=== PATIENT | male | born 1945 | race Caucasian/White ===

== ENCOUNTER 2016-05-08 11:11 | Emergency (ER) | payer MEDICARE, BC ==
[2016-05-08 11:52] LABS: BASOPHILS 0.3 % (0.0-2.0); EOSINOPHILS 1.7 % (0-7); HEMATOCRIT 45.4 % (42.0-54.0); HEMOGLOBIN 15.1 g/dL (13.5-17.5); IMMATURE GRANULOCYTES 0.3 % (0-5); LYMPHOCYTES 19.1 % (15-50); MCH 31.2 pg (26.0-34.0); MCHC 33.3 g/dL (31.0-37.0); MCV 93.8 fL (80.0-100.0); MEAN PLATELET VOLUME 9.6 fL (7.4-10.4); MONOCYTES 10.6 % (2-11); PLATELET COUNT 185 10x3/uL (130-400); RBC 4.84 10x6/uL (4.20-6.10); RDW 14.4 % (11.5-14.5); WBC 7.7 10x3/uL (4.8-10.8)
[2016-05-08 12:11] LABS: ALBUMIN 3.4 g/dL (3.4-5.0); ALKALINE PHOSPHATASE 83 U/L (46-116); ALT (SGPT) 28 U/L (10-68); BILIRUBIN - TOTAL 0.42 mg/dL (0.2-1.3); CALC OSMOLALITY 288 mosm/kg (275-300); CALCIUM 8.3 mg/dL (8.5-10.1); CARBON DIOXIDE 29.3 mmol/L (21.0-32.0); CHLORIDE - SERUM 106 mmol/L (98-107); CREATININE - SERUM 1.3 mg/dL (0.6-1.3); GLUCOSE 141 mg/dL (74-106); POTASSIUM - SERUM 3.7 mmol/L (3.5-5.1); PROTEIN - SERUM 6.8 g/dL (6.4-8.2); SODIUM 143 mmol/L (136-145); UREA NITROGEN 17 mg/dL (7-18); eGFR NON AFRICAN AMERICAN 58 mL/min (90-120)
[2016-05-08 12:21] LABS: CHOL - HDL RATIO 4.1 ratio (2.3-4.9); CHOLESTEROL, TOTAL 153 mg/dL (0-200); CKMB 0.3 U/L (0.0-3.6); CREATINE KINASE 65 UL (21-232); HDL CHOLESTEROL 37 mg/dL (32-96); LDL CHOLESTEROL 73 mg/dL (0-100); TRIGLYCERIDE 216 mg/dL (30-200); TROPONIN-I < 0.017 ng/mL (0.000-0.060)
== END 2016-05-08 13:22 | disposition home or self-care (01) ==
LOC: D.ER 11:11
PROVIDERS: Emergency Medicine
DX: R07.89 Other chest pain (principal); F41.9 Anxiety disorder, unspecified; E78.5 Hyperlipidemia, unspecified; F17.200 Nicotine dependence, unspecified, uncomplicated; I49.3 Ventricular premature depolarization; I45.10 Unspecified right bundle-branch block; I44.60 Unspecified fascicular block

== ENCOUNTER 2016-08-14 20:54 | Observation (INO) | payer MEDICARE, BC ==
[~2016-08-14] VITALS: Ht 182.9 cm; Wt 98.4 kg
--- NOTE | ~2016-08-14 | HEMODYNAMI ---
PATIENT:Nkechi WILCOX MEDICAL RECORD: [id number] : [birth year] LOCATION:[facility] D.7 ADMISSION DATE: 08/14/16 Generatedon:08/15/201612:27 Patient name: Nkechi WILCOX Patient #: [id number] SSN: [id number] : 1945 Date of study: 08/15/2016 Page: Of Hemodynamic Procedure Report Patient Data Patient Demographics Procedure consent was obtained First Name: Nkechi Gender: Male Last Name: BRENDEN : 1945 Middle Initial: W Age: 71 year(s) Patient #: [id number] Race: SSN: [id number] Additional ID: [id number] Contact details Address: [address] [place] [address] State: [place] City: [place] Zip code: [address] Admission Admission Data Admission Date: 08/14/2016 Admission Time: 22:13 Arrival Date: 08/14/2016 Arrival Time: 22:13 Admit Source: Other Insurance Payor: Medicare Room #: D.2117 Height (in.): 72 BSA: 2.24 (m2) Height (cm.): 182.88 BMI: 30.52 (kg/m2) Weight (lbs.): 225 Weight (kg.): 102.06 Lab Results Lab Result Date: 08/15/2016 Lab Result Time: 0:00 Biochemistry Name Units Result Min Max BUN mg/dl 21 --(----)-* 7 18 Creatinine mg/dl 1.5 --(----)-* 0.6 1.3 CBC Name Units Result Min Max Hemoglobin g/dl 13.9 --(*---)-- 13.5 17.5 Procedure Procedure Types Cath Procedure Diagnostic Procedure [facility] w/Coronaries Miscellaneous Procedures Moderate Sedation up to 30 minutes Procedure Description Procedure Date Procedure Date: 08/15/2016 Procedure Start Time: 12:08 Procedure End Time: 12:19 Procedure Staff Name Function Quoc Wang MD Performing Physician Zack Meraz RT Scrub Jerry Barajas RN Nurse Jessica cMneal RT Monitor Indication Angina Procedure Data Cath Procedure Fluoroscopy Diagnostic fluoroscopy Total fluoroscopy Time: 2.3 time: 2.3 min min Diagnostic fluoroscopy Total fluoroscopy dose: 464 dose: 464 mGy mGy Contrast Material Contrast Material Type Amount (ml) Isovue 370 81 Entry Location Entry Primary Successful Side Size Upsize Upsize Entry Closure Succes sful Closure Location (Fr) 1 (Fr) 2 (Fr) Remarks Device Remarks Femoral Right 5 Fr Exoseal artery Estimated blood loss: 5 ml Diagnostic catheters Device Type Used For End Catheter Placement Cordis 5Fr JL 4.0 Left Coronary Catheter (MP) Angiography Cordis 5Fr 3DRC Catheter Right Coronary (MP) Angiography Cordis 5Fr Pigtail LV Angiography Catheter (MP) Procedure Complications No complications Procedure Medications Medication Administration Route Dosage Oxygen NC 3 l/min Lidocaine 2% added to field 20 Heparin Flush Bag added to field 2 bags (1000units/500ml NS) 0.9% NaCl I.V. 100 ml/hr Versed I.V. 1 mg Fentanyl I.V. 50 mcg Versed I.V. 1 mg Fentanyl I.V. 50 mcg Hemodynamics Rest BSA: 2.24 (m2) HGB: 13.9 (g/dl) O2 Consumption: Estimated: 250.53 (ml/min) O2 Co nsumption indexed: Estimated:111.84 (ml/min/m) Heart Rate: 60 (bpm) Pressure Samples Time Site Value (mmHg) Purpose Heart Use Rate(bpm) 12:15 LV 125/11,20 Snapshot 100 Gradients Valve Time Site Site Mean SEP/DFP Peak To Heart Use 1 2 (mmHg) (sec/min) Peak Rate (mmHg) (bpm) Aortic 12:16 LV AO 89 Snapshots Pre Cath Intra NCS Post Cath Vital Signs Time Heart Resp SPO2 etCO2 [id number] NIBP (mmHg) Rhythm Pain Sedation Rate (ipm) (%) (mmHg) (mmHg) Status Level (bpm) 11:53:44 56 20 97 0 0 142/65(117) NSR 0 (11) 10(A) , No pain 11:58:06 53 17 97 0 0 133/60(113) NSR 0 (11) 10(A) , No pain 12:02:26 64 16 96 0 0 124/62(94) NSR 0 (11) 10(A) , No pain 12:06:46 60 15 96 0 0 128/62(108) NSR 0 (11) 10(A) , No pain 12:11:06 58 15 97 0 0 122/63(100) NSR 0 (11) 9(A) , No pain 12:15:24 97 16 94 0 0 131/62(101) NSR 0 (11) 9(A) , No pain 12:19:42 55 17 94 0 0 119/64(110) NSR 0 (11) 10(A) , No pain Medications Time Medication Route Dose Verified Delivered Reason Notes Effe ctiveness by by 11:52:46 Oxygen NC 3 Quoc Buffie used for l/min St. Sudhakar Barajas RN procedure 11:52:54 Lidocaine 2% added 20ml Quoc Quoc for local to vial [facility] anesthetic field MD ENNIS 11:53:00 Heparin Flush added 2 Quoc Quoc used for Bag to bags [facility] procedure (1000units/500ml field MD ENNIS NS) 11:53:10 0.9% NaCl I.V. 100 Quoc Del Rosarioie Per ml/hr St. Sudhakar Barajas RN physician 12:03:15 Versed I.V. 1 mg Quoc Edwards for St. Sudhakar Barajas RN sedation 12:03:20 Fentanyl I.V. 50 Quoc Del Rosarioie for mcg [address] Sudhakar Barajas RN sedation 12:11:53 Versed I.V. 1 mg Quoc Edwards for St. Sudhakar Barajas RN sedation 12:11:57 Fentanyl I.V. 50 Quoc Edwards for mcg St[address] Sudhakar Barajas RN sedation Procedure Log Time Note 11:21:49 Informed consent obtained and on chart 11:21:55 Diagnostic Cath Status : Elective 11:23:08 Indication : Angina 11:24:08 Admit Source: Other 11:24:17 Arrival Date: 08/14/2016 10:13:00 PM 11:24:26 Insurance Payor : Medicare 11:25:04 Lab Result : Hemoglobin 13.9 g/dl 11:25:04 Lab Result : Creatinine 1.5 mg/dl 11:25:04 Lab Result : BUN 21 mg/dl 11:26:21 Jerry Barajas RN sent for patient. Start room use. 11:32:52 Time tracking: Regular hours 11:32:57 Plan of Care:Hemodynamics will remain stable., Cardiac rhythm will remain stable., Comfort level will be maintained., Respiratory function will remain adequate., Patient/ family verbilizes understanding of procedure., Procedure tolerated without complication., Recovers from procedure without complications.. 11:43:18 Patient received from Med II to CCL 1 Alert and oriented. Tansferred to table in Supine position. 11:43:21 Warm blankets applied, and zenobia hugger turned on for patient comfort. 11:43:22 Correct patient and procedure confirmed by team. 11:43:23 ECG and BP/O2 sat monitors applied to patient. 11:52:26 Vital chart was started 11:52:27 Baseline sample Acquired. 11:52:33 Rhythm: sinus rhythm 11:52:34 Full Disclosure recording started 11:52:46 Oxygen 3 l/min NC was administered by Jerry Barajas RN; used for procedure; 11:52:54 Lidocaine 2% 20ml vial added to field was administered by Quoc Wang MD; for local anesthetic; 11:53:00 Heparin Flush Bag (1000units/500ml NS) 2 bags added to field was administered by Quoc Wang MD; used for procedure; 11:53:10 0.9% NaCl 100 ml/hr I.V. was administered by Jerry Barajas RN; Per physician; 11:58:27 H&P Date Dictated: 08/15/2016 New H&P dictated by physician.. 11:58:29 Pre-procedure instructions explained to patient. 11:58:29 Pre-op teaching completed and patient verbalized understanding. 11:58:32 Family in patients room. 11:58:40 Patient NPO since Midnight. 11:58:48 Is the patient allergic to Iodine/contrast media? No. 11:58:50 Was the patient premedicated? No 11:58:51 Is patient on blood thinner?No 11:58:52 Patient diabetic? No. 11:58:55 Previous problem with sedation/anesthesia? No ? 11:59:00 Snore? Yes 11:59:02 Sleep apnea? Yes 11:59:05 Deviated septum? No 11:59:07 Opens mouth fully? Yes 11:59:09 Sticks out tongue? Yes 11:59:13 Airway obstruction? Yes copd 11:59:16 Dentures? No ? 11:59:19 Pre procedure: right dorsailis pedis pulse 1+ Palpable, but thready & weak; easily obliterated 11:59:25 Patient pain scale 0/10 ?. 11:59:31 IV patent on arrival in left forearm with 0.9% NaCl at [facility]. 11:59:34 Lab results completed and on chart. 11:59:40 Right groin area was prepped with chlora-prep and draped in sterile fashion 11:59:41 Sharps counted by scrub and verified by R.N. 11:59:42 Alarms reviewed by R. N. 11:59:43 Physician arrived 11:59:44 --------ALL STOP TIME OUT------ 11:59:46 Final Timeout: patient, procedure, and site verified with staff and physician. All members of the team are in agreement. 11:59:49 Right groin site verified by team. 11:59:52 Physical assessment completed. ASA score P 3 - A patient with severe systemic disease as per Quoc Wang MD. 11:59:56 Sedation plan: IV Moderate Sedation Versed, Fentanyl 12:03:15 Versed 1 mg I.V. was administered by Jerry Barajas RN; for sedation; 12:03:20 Fentanyl 50 mcg I.V. was administered by Jerry Barajas RN; for sedation; 12:04:40 Use device set Femoral Dx 12:04:41 Acist Syringe opened to sterile field. 12:04:42 Bag Decanter opened to sterile field. 12:04:42 Medline Cath Pack opened to sterile field. 12:04:43 Terumo 5Fr Omar Sheath opened to sterile field. 12:04:43 St Fer 260cm J .035 wire opened to sterile field. 12:04:44 Acist Hand Control opened to sterile field. 12:04:45 Acist Manifold opened to sterile field. 12:04:45 Diagnostic Infinity 5Fr Multipack catheter opened to sterile field. 12:04:46 Tegaderm 4 x 4 opened to sterile field. 12:08:55 Procedure started. 12:08:59 Local anesthetic to right femoral artery with Lidocaine 2% by Quoc Wang MD.INITIAL ACCESS ONLY 12:09:54 A 5 Fr sheath was inserted into the Right Femoral artery 12:10:04 A Cordis 5Fr JL 4.0 Catheter (MP) was advanced over the wire and used for Left Coronary Angiography. 12:10:09 LCA angiography performed. 12:10:12 Injector settings: Ml/sec: 3, Volume: 6, 12:11:30 Catheter removed. 12:11:36 A Cordis 5Fr 3DRC Catheter (MP) was advanced over the wire and used for Right Coronary Angiography. 12:11:53 Versed 1 mg I.V. was administered by Jerry Barajas RN; for sedation; 12:11:57 Fentanyl 50 mcg I.V. was administered by Jerry Barajas RN; for sedation; 12:13:26 RCA angiography performed. 12:13:50 Catheter removed. 12:13:59 A Cordis 5Fr Pigtail Catheter (MP) was advanced over the wire and used for LV Angiography. 12:14:14 Zero performed for pressure channel P1 12:15:59 LV hemodynamics recorded. 12:16:01 LV gram done using ULRICH 12:16:03 Injector settings: Ml/sec: 5, Volume: 15, 12:16:13 EF : 60 % 12:16:23 Catheter removed. 12:16:32 Cordis 5Fr Exoseal opened to sterile field. 12:17:00 Sheath removed intact; hemostasis achieved with Exoseal to the Right Femoral artery. 12:17:02 Procedure ended.(Physican Out) 12:17:19 Fluoroscopy time 02.30 minutes. 12:17:23 Fluoroscopy dose: 464 mGy 12:17:23 Flurop Dose total: 464 12:17:28 Contrast amount:Isovue 370 81ml. 12:17:46 Sharps counted by scrub and verified by R.N. 12:17:48 Insertion/operative site no bleeding no hematoma. 12:17:51 Post-op/insertion site Right Femoral artery dressed using a 4 x 4 and Tegaderm. 12:17:54 Post right femoral artery:stable 12:17:55 Post Procedure Pulses reassessed and unchanged 12:17:58 Post procedure rhythm: unchanged. 12:18:01 Estimated blood loss: 5 ml 12:18:03 Post procedure instruction explained to patient.Patient verbalizes understanding. 12:18:03 Patient needs reinforcement of post procedure teaching. 12:18:43 Procedure type changed to Cath procedure, Diagnostic procedure, [facility], [facility] w/Coronaries, Miscellaneous Procedures, Moderate Sedation up to 30 minutes 12:18:45 Procedure and supply charges have been captured, reviewed, submitted and are correct. 12:18:50 Procedure Complication : No complications 12:18:52 Vital chart was stopped 12:18:53 See physician's report for complete and final results. 12:18:58 Report given to [facility]. 12:19:01 Patient transfered to [facility] with Stretcher. 12:19:02 Procedure ended. 12:19:02 Full Disclosure recording stopped 12:19:06 End room use (Document Last) 12:22:39 Patient Weight : 225 kg 12:22:48 Patient Height : 72 cm Device Usage Item Name Manufacture Quantity Catalog Hospital Part Current Minimal Lo t# / Number Charge Number Stock Stock Serial# Code Acist Acist 1 98148 382757 170762 087539 20 Syringe Medical [employer] Inc Bag Microtek 1 2002S 209359 76857 281206 5 Dec[employer] Medline Cardinal 1 [id number] 617107 90236 718869 5 Cath Pack Health Terumo 5Fr Terumo 1 EUD022 872836 212251 418879 [address] Fer St Fer 1 562966 845667 418013 197673 30 260cm J .035 wire Acist Hand Acist 1 08558 117812 428848 657082 5 Control Medical Systems Inc Acist Acist 1 41316 426701 799377 953297 5 Manifold Medical Systems Inc Diagnostic Cardinal 1 [id number] 510762 47602 257283 30 Infinity Health 5Fr Multipack catheter Tegaderm 4 3M 1 1626W 925670 328045 184104 5 x 4 Cordis 5Fr Cardinal 1 171085 5 JL 4.0 Health Catheter (MP) Cordis 5Fr Cardinal 1 268833 5 3DRC Health Catheter (MP) Cordis 5Fr Cardinal 1 979404 5 Pigtail Health Catheter (MP) Cordis 5Fr Cardinal 1 EX500 771050 491286 300332 10 Admiral Records Management Signature Audit [place] Stage Time Signature Unsigned Intra-Procedure 08/15/2016 Jessica Mcneal 12:27:04 PM RT(R) Signatures Monitor : Jessica Mcneal RT Signature : Date : Time : [address] [place] [address]
--- NOTE | ~2016-08-14 | DS ---
PATIENT:Nkechi WILCOX :[birth year] MEDICAL RECORD: [id number] DISCHARGE SUMMARY ADMISSION DATE: 08/14/16 DISCHARGE DATE: 08/15/16 DATE OF ADMISSION: 08/14/2016 DATE OF DISCHARGE: 08/15/2016 ADMITTING DIAGNOSES: Chest pain, AFib with rapid ventricular response. 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 Details are well-outlined in the history of the present illness, H&P. All events, lab procedures and diagnostic testing are well documented in the records. The patient was admitted, appropriate home medicines continued. Dr. Montalvo consulted for cardiology management. His recommendations were followed. The patient had elevated troponin. He did convert to sinus rhythm. It was thought he needed to go to the clay processing labourer; however, he was taken to the clay processing labourer, had a clean cath per Dr. Wang's report. He has remained in a sinus rhythm, he stabilized post-cath and stable for dismissal home. DIAGNOSES: Same as above. Also includes chest pain, elevated troponin, AFib with rapid ventricular response, now converted to sinus rhythm, elevated troponin, likely secondary to demand ischemia from AFib, coronary artery disease status post cardiac catheterization with patent coronaries, history of pulmonary embolus, he is on chronic Coumadin, history of hypertension, ongoing tobacco use, nicotine dependence with withdrawal. Greater than 30 minutes was spent on this discharge. TRANSINT:[id number] Voice Confirmation ID: [id number] DOCUMENT ID: [id number] Dictated By: CISCO VANEGAS RN I have interviewed/examined the above patient and agree with these documented findings. MIRYAM RODGERS MD CC: [id number] DICTATION DATE: 08/15/16 1452 CERAMICS TEST ENGINEER: 08/16/16 1007 DIS IN 08/15/16 [facility] [address] [place] [address]
[~2016-08-14 20:54] MED LIST: OMEPRAZOLE20 M1 PO
[2016-08-14 21:14] LABS: BASOPHILS 0.4 % (0-2); EOSINOPHILS 1.6 % (0-7); HEMATOCRIT 45.2 % (42.0-54.0); HEMOGLOBIN 15.3 g/dL (13.5-17.5); IMMATURE GRANULOCYTES 0.1 % (0-5); LYMPHOCYTES 23.7 % (15-50); MCH 31.5 pg (26.0-34.0); MCHC 33.8 g/dL (31.0-37.0); MEAN PLATELET VOLUME 9.5 fL (7.4-10.4); MONOCYTES 8.7 % (2-11); NEUTROPHILS 65.5 % (40-80); PLATELET COUNT 194 10x3/uL (130-400); RBC 4.86 10x6/uL (4.20-6.10); RDW 14.7 % (11.5-14.5)
[2016-08-14 21:22] LABS: INR 2.18 (0.85-1.17); PROTIME 24.3 SECONDS (11.6-15.0)
[2016-08-14 21:29] LABS: ALBUMIN 3.2 g/dL (3.4-5.0); ALKALINE PHOSPHATASE 89 U/L (46-116); ALT (SGPT) 30 U/L (10-68); CALCIUM 8.1 mg/dL (8.5-10.1); CARBON DIOXIDE 24.2 mmol/L (21.0-32.0); CHLORIDE - SERUM 104 mmol/L (98-107); CREATININE - SERUM 1.5 mg/dL (0.6-1.3); PROTEIN - SERUM 6.7 g/dL (6.4-8.2); SODIUM 140 mmol/L (136-145); UREA NITROGEN 21 mg/dL (7-18); eGFR NON AFRICAN AMERICAN 49 mL/min (90-120)
[2016-08-14 21:41] LABS: CHOL - HDL RATIO 3.9 ratio (2.3-4.9); CHOLESTEROL, TOTAL 143 mg/dL (0-200); CKMB 2.8 U/L (0.0-3.6); CREATINE KINASE 123 UL (21-232); HDL CHOLESTEROL 37 mg/dL (32-96); LDL CHOLESTEROL 62 mg/dL (0-100); LDL-HDL RATIO 1.7 ratio (1.5-3.5); MAGNESIUM - SERUM 1.8 mg/dL (1.8-2.4); TRIGLYCERIDE 221 mg/dL (30-200)
[2016-08-14 21:42] LABS: CALC OSMOLALITY 288 mosm/kg (275-300); GLUCOSE 225 mg/dL (74-106); TROPONIN-I < 0.017 ng/mL (0.000-0.060)
--- NOTE | 2016-08-14 23:27 | NUR ---
ARRIVED TO FLOOR VIA STRETCHER, ORIENTED TO UNIT. PLACED ON TELEMETRY. RIGHT FOREARM INFUSING CARDIZEM @ 15. CALL LIGHT IN REACH. SEE NURSE ASSESSMENT.
[2016-08-14] MEDS ORDERED: NORVASC10 MG PO (23:59)
[2016-08-15] VITALS: BP 96/47
[2016-08-15] MEDS ORDERED: HYTRIN10 MG PO (00:01)
[2016-08-15] MEDS ORDERED: PRAVACHOL80 MG PO (00:01)
[2016-08-15] MEDS ORDERED: PROSCAR5 MG PO (00:01)
[2016-08-15] MEDS ORDERED: COUMADIN5 MG PO (00:02)
[2016-08-15 01:12] VITALS: BP 96/47; Ht 182.9 cm; Wt 98.4 kg
[2016-08-15 04:00] VITALS: BP 115/47
[2016-08-15 04:49] LABS: INR 1.6 (0.85-1.17)
[2016-08-15 05:28] LABS: CARBON DIOXIDE 29.4 mmol/L (21.0-32.0); CHLORIDE - SERUM 107 mmol/L (98-107); CKMB 1.7 U/L (0.0-3.6); CREATINE KINASE 94 UL (21-232); SODIUM 142 mmol/L (136-145)
[2016-08-15 05:32] LABS: CALC OSMOLALITY 290 mosm/kg (275-300); CREATININE - SERUM 1.9 mg/dL (0.6-1.3); GLUCOSE 130 mg/dL (74-106); POTASSIUM - SERUM 3.6 mmol/L (3.5-5.1); UREA NITROGEN 29 mg/dL (7-18); eGFR NON AFRICAN AMERICAN 37 mL/min (90-120)
[2016-08-15 05:33] LABS: TROPONIN-I 0.072 ng/mL (0.000-0.060)
[2016-08-15 07:48] VITALS: BP 102/46
[2016-08-15 07:49] LABS: BASOPHILS 0.4 % (0-2); EOSINOPHILS 2.1 % (0-7); HEMATOCRIT 42.4 % (42.0-54.0); HEMOGLOBIN 13.9 g/dL (13.5-17.5); IMMATURE GRANULOCYTES 0.1 % (0-5); LYMPHOCYTES 21.5 % (15-50); MCH 31.2 pg (26.0-34.0); MCHC 32.8 g/dL (31.0-37.0); MEAN PLATELET VOLUME 10.1 fL (7.4-10.4); MONOCYTES 11.4 % (2-11); NEUTROPHILS 64.5 % (40-80); PLATELET COUNT 188 10x3/uL (130-400); RBC 4.46 10x6/uL (4.20-6.10); WBC 8.5 10x3/uL (4.8-10.8)
[2016-08-15 07:51] LABS: MCV 95.1 fL (80.0-100.0)
--- NOTE | 2016-08-15 08:17 | NUR ---
ASSESSMENT COMPLETED. TELEMERTY SHOWS SB AT 54. O2 AT 3 LM PER NC. SL TO RIGHT FA AND RIGHT AC, BOTH PATENT. DENIES ANY PAIN. SR UP WITH CALL LIGHT IN REACH
[2016-08-15 10:34] LABS: INR 1.34 (0.85-1.17); PROTIME 16.5 SECONDS (11.6-15.0)
[2016-08-15 10:58] LABS: CKMB 1.3 U/L (0.0-3.6); CREATINE KINASE 77 UL (21-232)
[2016-08-15 11:00] LABS: TROPONIN-I 0.076 ng/mL (0.000-0.060)
[2016-08-15 11:48] VITALS: BP 130/59
--- NOTE | 2016-08-15 12:51 | NUR ---
BACK FROM CONTACT LENS BLOCKER AND CUTTER. RIGHT GROIN SOFT WITH DRSG DRY AND INTACT. PPP. TELEMERTY SHOWS SR. V/S STABLE. WILL MONITOR
--- NOTE | 2016-08-15 13:39 | NUR ---
RIGHT GROIN SOFT WITH DRSG DRY AND INTACT. PPP. FAMILY AT BEDSIDE. WILL MONITOR
--- NOTE | 2016-08-15 15:36 | NUR ---
PT DISCHARGED. IVS REMOVED WITH TIP INTACT. INSTRUCTIONS GIVEN TO AND PT. TO PRIVATE CAR PER WHEELCHAIR
--- NOTE | 2016-08-16 10:00 | OP ---
PATIENT NAME: Nkechi WILCOX MEDICAL RECORD: [id number] :[birth year] LOCATION:D.M2 D.7 ADMISSION DATE:08/14/16 SURGEON: CONCEPCIÓN GARCIA MD DATE OF OPERATION: 08/15/2016 PROCEDURES: Left heart catheterization, selective coronary angiography, right femoral artery approach. CATHETERS: A 5-Paraguayan sheath, 5/4 left and right Niurka, 5/4 pig. The procedure was well tolerated and the patient returned to cortes, sheath removed. ExoSeal device was placed. FINDINGS: Left ventriculography in the 30-degree ULRICH view: Normal wall motion, normal systolic function, estimated EF 60%. CORONARY ANATOMY: Left main: Left main is free of disease. LAD: Has minimal luminal irregularity, but no flow obstructive stenosis. CIRCUMFLEX: Circumflex has minimal luminal irregularity, no flow obstructive stenosis. This is a left dominant system. RIGHT CORONARY ARTERY: Rudimentary without significant disease. IMPRESSION: Chest pain, dyspnea from atrial fibrillation. No role for intervention. TRANSINT:[id number] Voice Confirmation ID: [id number] DOCUMENT ID: [id number] CONCEPCIÓN GARCIA MD at 1000 CC: [id number] DICTATION DATE: 08/15/16 1241 ASSOCIATE PROFESSOR: 08/15/16 2135 DIS IN 08/15/16 [place] [address] [place] [address]
== END 2016-08-15 15:48 | disposition home or self-care (01) ==
LOC: D.ER 20:54 → D.M2 22:13 → OBSVTIME 22:13 → D.M2 22:13
PROVIDERS: Emergency Medicine; Internal Medicine Cardiovascular Disease; ADMIT Family Medicine
DX: I48.0 Paroxysmal atrial fibrillation (principal); Z79.01 Long term (current) use of anticoagulants; Z86.711 Personal history of pulmonary embolism; I24.8 Other forms of acute ischemic heart disease; I25.10 Atherosclerotic heart disease of native coronary artery without angina pectoris; I10 Essential (primary) hypertension; F17.203 Nicotine dependence unspecified, with withdrawal; J44.9 Chronic obstructive pulmonary disease, unspecified; K21.9 Gastro-esophageal reflux disease without esophagitis; E87.6 Hypokalemia

== ENCOUNTER 2018-01-12 22:46 | Inpatient (IN) | payer MEDICARE, BC ==
[~2018-01-12] VITALS: Ht 182.9 cm; Wt 102.1 kg
--- NOTE | ~2018-01-12 | MORECARE ---
CASE MANAGEMENT DISCHARGE SUMMARY PATIENT: Nkechi WILCOX UNIT: [id number] ADM DATE: 01/13/18 AGE: 72 : [birth year] SEX: M ROOM/BED: D.3579 AUTHOR: LANDY,DOC PHYSICIAN: REFERRING PHYSICIAN: REG CONNER MD DATE OF SERVICE: 01/15/18 Discharge Plan Patient Name: Nkechi WILCOX Facility: [facility]:[place] : 1945 Planned Disposition: Home Anticipated Discharge Date: 01/16/18 Discharge Date: Expected LOS: 3 Initial Reviewer: [email or web address] Initial Review Date: 01/15/2018 Generated: 01/15/18 2:24 pm Comments DCP- Discharge Planning Updated by [id number]: Herman Espinosa on 01/15/18 12:[address] Patient Name: Nkechi WILCOX Admission Status: ER Accout number: [id number] Admission Date: 01-13-2018 : 1945 Admission Diagnosis:SHORTNESS OF BREATH Attending: REG CONNER Current LOS: 2 Anticipated DC Date: 01-16-2018 Planned Disposition: Home Primary Insurance: MEDICARE A & B Discharge Planning Comments: CM RECEIVED ORDER FOR OXYGEN, NEBULIZER AND NEBULIZED MEDICATIONS, MET WITH PT IN ROOM TO DISCUSS DISCHARGE PLANNING AND NEEDS. PT REPORTS LIVING AT HOME INDEPENDENTLY WITH SPOUSE. PT HAS CPAP FROM [facility] AND NO OUTSIDE SERVICES ASSISTING IN THE HOME. CM DISCUSSED AVAILABILITY OF HOME HEALTH, REHAB SERVICES AND MEDICAL EQUIPMENT. PT DENIES DISCHARGE NEEDS OTHER THAN OXYGEN AND NEBULIZER; PT, REPORTS HIS WILL PICK HIM UP FOR DISCHARGE HOME. IMPORTANT MESSAGE FROM MEDICARE PROVIDED AND EXPLAINED. [facility] AND UNDERSTANDS IT MAY NOT BE READY FOR HIM TO GO HOME THIS WEEKEND PLANNED. CM DISCUSSED OPTION OF USING MEDICARE INSURANCE FOR MEDICAL EQUIPMENT WITH COMMUNITY PROVIDER WHICH WILL ALLOW PT TO GO HOME WITH NEEDED MEDICAL EQUIPMENT AND ALLOW THE [facility] TIME TO ARRANGE MEDICAL EQUIPMENT AT HOME. PT IN AGREEMENT WITH PLAN AND REPORTS HAVING FUNDS TO PAY FOR MEDICATION AT PHARMACY UNTIL HE CAN GET TO [facility] NEXT THURSDAY TO GET PRESCRIPTIONS FILLED BY [facility] PH[facility]. PT HAS NOT CHOICE ON PROVIDER FOR MEDICAL EQUIPMENT. CM CALLED [facility], DISCUSSED WITH YULISSA AT [phone] WHO REPORTS THEY CAN PROVIDE OXYGEN AND NEBULIZER THROUGH MEDICARE AND [employer] WITH NO COPAY TO PT UNTIL THE PA PROVIDES THE EQUIPMENT OR PT MAY DECIDE TO KEEP EQUIPMENT WITH [facility] AND MEDICARE PAYING. PT INFORMED AND IN AGREEMENT WITH PLAN. CM CALLED BRIAN BENITEZ [facility] CARTOGRAPHIC DRAFTER, [place]T [phone] WHO ADVISED CM TO FAX REQUEST AND DOCUMENTATION TO [facility] AND ADVISED THAT IT MAY TAKE SEVERAL DAYS TO ARRANGE MEDICAL EQUIPMENT THROUGH [facility]. CM CALLED [facility], , SPOKE TO AMAN WHO ASKED FOR CM TO FAX REFERRAL AND SHE COULD NOT TELL CM HOW LONG IT WILL TAKE TO ARRANGE MEDICAL EQUIPMENT. CM FAXED REFERRAL [facility], , ATTENTION PAC [address] DOMINGUEZ. CM FAXED REFERRAL TO [facility] FOR OXYGEN AND NEBULIZER, . CM CALLED [facility], , SPOKE TO LATONIA WHO PROVIDED [employer] [employer] OF DUONEB INHALATION SOLUTION AND [employer] INHALER: DUONEB $13.39 AND [employer]BICORT $326.40. PT NOTIFIED AND WILL CALL [employer] TO SEE IF HE CAN GET DISCOUNT CARD FOR FREE INHALER. CM FAXED PRESCRIPTIONS TO [facility] AT [phone]. [facility] TO ARRANGE HOSPITAL DELIVERY OF PORTABLE OXYGEN TO HOSPITAL FOR DISCHARGE THURSDAY, WILL ARRANGE HOME OXYGEN AND NEBULIZER FOR HOME DELIVERY. [facility] ALSO WORKING ON ARRANGING OXYGEN AND NEBUILZER FOR HOME DELIVERY; PT WILL CALL [facility] TO HAVE EQUIPMENT PICKED UP ONCE [facility] DELIVERS. PT WILL TAKE PRESCRIPTIONS TO [facility] CL[facility]IC ON THURSDAY TO CHANGE TO [facility] PRESCRIPTIONS FOR FILLING AT [facility] PHARM[facility]Y. Belt Cleaner: Herman Espinosa DCPIA - Discharge Planning Initial Assessment Updated by [id number]: Herman Espinosa on 01/15/18 12:46 pm * Is the patient Alert and Oriented? Yes * How many steps to enter\exit or inside your home? * PCP DR. DOMINGUEZ, [facility] * Pharmacy [facility] MAIL ORDER OR Automated Trading Desk * Preadmission Environment Home with Family * ADLs Independent * Equipment CPAP * Other Equipment PROVIDER - [facility] * List name and contact numbers for known caregivers / representatives who currently or will assist patient after discharge: BILL PALMA, SIGNIFICANT OTHER, * Verbal permission to speak to the caregivers and representatives has been obtained from the patient. N/A * Community resources currently utilized None * Please name any agencies selected above. NONE * Additional services required to return to the preadmission environment? No * Can the patient safely return to the preadmission environment? Yes * Has this patient been hospitalized within the prior 30 days at any hospital? No Coverage Notice Reviewer: [email or web address] Ilana AaronChloéisaac Willis Notice Issued Date-Time: 01/13/2018 13:27 Notice Type: Medicare Outpatient Observation Notice Notice Delivered To: Patient Relationship to Patient: Self Beer Maker Name: Delivery Method: HAND - Hand Delivered Michelle Days: Prior Verbal Notification: Recipient Understood Notice: Yes Recipient Signature: Yes Med Rec Note Co-signed by Attending: Coverage Notice Comment: Last DP export: 01/15/18 11:50 a Patient Name: Nkechi WILCOX Page [phone] at 1324 All edits/amendments must be made on the electronic document DICTATION DATE: 01/15/18 1323 PRESS BRAKE OPERATOR: CHUCK 01/15/18 1323 RPT#: [id number] DC DATE: STATUS: ADM IN [facility] [address] [place] [address] END OF REPORT
--- NOTE | ~2018-01-12 | MORECARE ---
CASE MANAGEMENT DISCHARGE SUMMARY PATIENT: Nkechi WILCOX UNIT: [id number] ADM DATE: 01/13/18 AGE: 72 : 46 SEX: M ROOM/BED: D.0574 AUTHOR: LANDY,DOC PHYSICIAN: REFERRING PHYSICIAN: REG CONNER MD DATE OF SERVICE: 01/15/18 Discharge Plan Patient Name: Nkechi WILCOX Facility: [facility]:[place] : 1945 Planned Disposition: Home Anticipated Discharge Date: 01/16/18 Discharge Date: Expected LOS: 3 Initial Reviewer: [id number] Initial Review Date: 01/15/2018 Generated: 01/15/18 2:47 pm Comments DCP- Discharge Planning Updated by [id number]: Herman Nuñez on 01/15/18 12:[address] Patient Name: Nkechi WILCOX Admission Status: ER Accout number: [id number] Admission Date: 01-13-2018 : 1945 Admission Diagnosis:SHORTNESS OF BREATH Attending: REG CONNER Current LOS: 2 Anticipated DC Date: 01-16-2018 Planned Disposition: Home Primary Insurance: MEDICARE A & B Discharge Planning Comments: CM RECEIVED ORDER FOR OXYGEN, NEBULIZER AND NEBULIZED MEDICATIONS, MET WITH PT IN ROOM TO DISCUSS DISCHARGE PLANNING AND NEEDS. PT REPORTS LIVING AT HOME INDEPENDENTLY WITH SPOUSE. PT HAS CPAP FROM [place] AND NO OUTSIDE SERVICES ASSISTING IN THE HOME. CM DISCUSSED AVAILABILITY OF HOME HEALTH, REHAB SERVICES AND MEDICAL EQUIPMENT. PT DENIES DISCHARGE NEEDS OTHER THAN OXYGEN AND NEBULIZER; PT, REPORTS HIS WILL PICK HIM UP FOR DISCHARGE HOME. IMPORTANT MESSAGE FROM MEDICARE PROVIDED AND EXPLAINED. [facility] AND UNDERSTANDS IT MAY NOT BE READY FOR HIM TO GO HOME THIS WEEKEND PLANNED. CM DISCUSSED OPTION OF USING MEDICARE INSURANCE FOR MEDICAL EQUIPMENT WITH COMMUNITY PROVIDER WHICH WILL ALLOW PT TO GO HOME WITH NEEDED MEDICAL EQUIPMENT AND ALLOW THE [facility] TIME TO ARRANGE MEDICAL EQUIPMENT AT HOME. PT IN AGREEMENT WITH PLAN AND REPORTS HAVING FUNDS TO PAY FOR MEDICATION AT PHARMACY UNTIL HE CAN GET TO [place] NEXT THURSDAY TO GET PRESCRIPTIONS FILLED BY [place] [facility]. PT HAS NOT CHOICE ON PROVIDER FOR MEDICAL EQUIPMENT. CM CALLED [facility], DISCUSSED WITH YULISSA AT [phone] WHO REPORTS THEY CAN PROVIDE OXYGEN AND NEBULIZER THROUGH MEDICARE AND [employer] WITH NO COPAY TO PT UNTIL THE [place] PROVIDES THE EQUIPMENT OR PT MAY DECIDE TO KEEP EQUIPMENT WITH [facility] AND MEDICARE PAYING. PT INFORMED AND IN AGREEMENT WITH PLAN. CM CALLED BRIAN BENITEZ [place] TUBE ROOM SUPERVISOR, m [phone] WHO ADVISED CM TO FAX REQUEST AND DOCUMENTATION TO [facility] AND ADVISED THAT IT MAY TAKE SEVERAL DAYS TO ARRANGE MEDICAL EQUIPMENT THROUGH [facility]. CM CALLED [facility], , SPOKE TO AMAN WHO ASKED FOR CM TO FAX REFERRAL AND SHE COULD NOT TELL CM HOW LONG IT WILL TAKE TO ARRANGE MEDICAL EQUIPMENT. CM FAXED REFERRAL [facility], , ATTENTION PAC [address] DOM[address]UE[address] CM FAXED REFERRAL TO [facility] FOR OXYGEN AND NEBULIZER, . CM CALLED [facility], , SPOKE TO LATONIA WHO PROVIDED [facility] [employer] DUONEB INHALATION SOLUTION AND SYMBICORT INHALER: DUONEB $13.39 AND SYBICORT $326.40. PT NOTIFIED AND WILL CALL [employer] TO SEE IF HE CAN GET DISCOUNT CARD FOR FREE INHALER. CM FAXED PRESCRIPTIONS TO [facility] AT [phone]. [facility] TO ARRANGE HOSPITAL DELIVERY OF PORTABLE OXYGEN TO HOSPITAL FOR DISCHARGE THURSDAY, WILL ARRANGE HOME OXYGEN AND NEBULIZER FOR HOME DELIVERY. [facility] ALSO WORKING ON ARRANGING OXYGEN AND NEBUILZER FOR HOME DELIVERY; PT WILL CALL [facility] TO HAVE EQUIPMENT PICKED UP ONCE [place] DELIVERS. PT WILL TAKE PRESCRIPTIONS TO [place] [facility] [place] THURSDAY TO CHANGE TO [place] PRES[place] FOR [place]ILLING AT [place] [facility]. License Inspector: Herman Nuñez Appended by Herman Nuñez on 01/15/2018 13:43 BOOK SOLICITOR: CM OBTAINED SIGNED PRESCRIPTIONS FOR DUONEB AND SYMBICORT, FAXED TO [facility] AT [phone]. CM OBTAINED SYMBICORT SAMPLE INHALER FROM DR. REBOLLAR, PLACED ON FRONT OF PT'S CHART TO BE PROVIDED TO PT FOR DISHCHARGE HOME. PATIENT NOTIFIED. CM TO CONTINUE TO FOLLOW AND ASSIST NEEDED. HERMAN NUÑEZ, CASE MANAGEMENT DCPIA - Discharge Planning Initial Assessment Updated by [id number]: Herman Nuñez on 01/15/18 12:46 pm * Is the patient Alert and Oriented? Yes * How many steps to enter\exit or inside your home? * PCP DR. DOMINGUEZ, [facility] * [facility]acy [facility] * Preadmission Environment Home with Family * ADLs Independent * Equipment CPAP * Other Equipment PROVIDER - [facility] * List name and contact numbers for known caregivers / representatives who currently or will assist patient after discharge: BILL PALMA, SIGNIFICANT OTHER, * Verbal permission to speak to the caregivers and representatives has been obtained from the patient. N/A * Community resources currently utilized None * Please name any agencies selected above. NONE * Additional services required to return to the preadmission environment? No * Can the patient safely return to the preadmission environment? Yes * Has this patient been hospitalized within the prior 30 days at any hospital? No Coverage Notice Reviewer: [id number] Ilana Willis Notice Issued Date-Time: 01/13/2018 13:27 Notice Type: Medicare Outpatient Observation Notice Notice Delivered To: Patient Relationship to Patient: Self Workday Financials Consultant Name: Delivery Method: HAND - Hand Delivered Michelle Days: Prior Verbal Notification: Recipient Understood Notice: Yes Recipient Signature: Yes Med Rec Note Co-signed by Attending: Coverage Notice Comment: Reviewer: [id number] - Herman Nuñez Notice Issued Date-Time: 01/15/2018 12:00 Notice Type: IM Discharge Notice Notice Delivered To: Patient Relationship to Patient: Workday Financials Consultant Name: Delivery Method: HAND - Hand Delivered Michelle Days: Prior Verbal Notification: Recipient Understood Notice: Yes Recipient Signature: Yes Med Rec Note Co-signed by Attending: Coverage Notice Comment: Last DP export: 01/15/18 12:24 p Patient Name: Nkechi WILCOX Page [id number] at 1347 All edits/amendments must be made on the electronic document DICTATION DATE: 01/15/18 1346 CASHIERS BUSSERS FOOD RUNNERS: CHUCK 01/15/18 1346 RPT#: [id number] DC DATE: STATUS: ADM IN [facility] [address] [place] [address] END OF REPORT
--- NOTE | ~2018-01-12 | MORECARE ---
CASE MANAGEMENT DISCHARGE SUMMARY PATIENT: Nkechi WILCOX UNIT: [id number] ADM DATE: 01/13/18 AGE: 72 : 46 SEX: M ROOM/BED: D.[facility]8 AUTHOR: LANDYDOC PHYSICIAN: REFERRING PHYSICIAN: REG CONNER MD DATE OF SERVICE: 01/15/18 Discharge Plan Patient Name: Nkechi WILCOX Facility: [facility]:[place] : 1945 Planned Disposition: Home Anticipated Discharge Date: 01/16/18 Discharge Date: Expected LOS: 3 Initial Reviewer: [id number] Initial Review Date: 01/15/2018 Generated: 01/15/18 1:50 pm DCPIA - Discharge Planning Initial Assessment Updated by [email or web address]: Herman Espinosa on 01/15/18 12:46 pm * Is the patient Alert and Oriented? Yes * How many steps to enter\exit or inside your home? * PCP DR. DOMINGUEZ, [facility] * [facility] * Preadmission Environment Home with Family * ADLs Independent * Equipment CPAP * Other Equipment PROVIDER - [facility] * List name and contact numbers for known caregivers / representatives who currently or will assist patient after discharge: BILL PALMA, SIGNIFICANT OTHER, * Verbal permission to speak to the caregivers and representatives has been obtained from the patient. N/A * Community resources currently utilized None * Please name any agencies selected above. NONE * Additional services required to return to the preadmission environment? No * Can the patient safely return to the preadmission environment? Yes * Has this patient been hospitalized within the prior 30 days at any hospital? No External Providers External Provider: OTHER-OTHER Next Contact Date: 01/15/2018 Service Request Date: Service Type: Resolution: Reviewer: Comments: External Provider: Nataliia Next Contact Date: 01/15/2018 Service Request Date: Service Type: Resolution: Reviewer: Comments: Coverage Notice Reviewer: [id number] Ilana Willis Notice Issued Date-Time: 01/13/2018 13:27 Notice Type: Medicare Outpatient Observation Notice Notice Delivered To: Patient Relationship to Patient: Self Patron Attendant Name: Delivery Method: HAND - Hand Delivered Michelle Days: Prior Verbal Notification: Recipient Understood Notice: Yes Recipient Signature: Yes Med Rec Note Co-signed by Attending: Coverage Notice Comment: Patient Name: Nkechi WILCOX Page [id number] at 1251 All edits/amendments must be made on the electronic document DICTATION DATE: 01/15/18 1250 FIBERGLASS FINISHER: CHUCK 01/15/18 1250 RPT#: [id number] DC DATE: STATUS: ADM IN [facility] [address] [place] [address] END OF REPORT
--- NOTE | ~2018-01-12 | MORECARE ---
CASE MANAGEMENT DISCHARGE SUMMARY PATIENT: Nkechi WILCOX UNIT: [id number] ADM DATE: 01/13/18 AGE: 72 : 46 SEX: M ROOM/BED: D.3033 AUTHOR: LANDYDOC PHYSICIAN: REFERRING PHYSICIAN: REG CONNER MD DATE OF SERVICE: 01/18/18 Discharge Plan Patient Name: Nkechi WILCOX Facility: [facility]:[place] : 1945 Planned Disposition: Home Anticipated Discharge Date: 01/16/18 Discharge Date: 01/16/2018 Expected LOS: 3 Initial Reviewer: [id number] Initial Review Date: 01/15/2018 Generated: 01/18/18 10:00 am Comments DCP- Discharge Planning Updated by [id number]: Herman Nuñez on 01/15/18 12:[address] Patient Name: Nkechi WILCOX Admission Status: ER Accout number: [id number] Admission Date: 01-13-2018 : 1945 Admission Diagnosis:SHORTNESS OF BREATH Attending: REG CONNER Current LOS: 2 Anticipated DC Date: 01-16-2018 Planned Disposition: Home Primary Insurance: MEDICARE A & B Discharge Planning Comments: CM RECEIVED ORDER FOR OXYGEN, NEBULIZER AND NEBULIZED MEDICATIONS, MET WITH PT IN ROOM TO DISCUSS DISCHARGE PLANNING AND NEEDS. PT REPORTS LIVING AT HOME INDEPENDENTLY WITH SPOUSE. [place] FROM [place] AND NO OUTSIDE SERVICES ASSISTING IN THE HOME. CM DISCUSSED AVAILABILITY OF HOME HEALTH, REHAB SERVICES AND MEDICAL EQUIPMENT. PT DENIES DISCHARGE NEEDS OTHER THAN OXYGEN AND NEBULIZER; PT, REPORTS HIS WILL PICK HIM UP FOR DISCHARGE HOME. IMPORTANT MESSAGE FROM MEDICARE PROVIDED AND EXPLAINED. PT [facility] AND UNDERSTANDS IT MAY NOT BE READY FOR HIM TO GO HOME THIS WEEKEND PLANNED. CM DISCUSSED OPTION OF USING MEDICARE INSURANCE FOR MEDICAL EQUIPMENT WITH COMMUNITY PROVIDER WHICH WILL ALLOW PT TO GO HOME WITH NEEDED MEDICAL EQUIPMENT AND ALLOW THE VA TIME TO ARRANGE MEDICAL EQUIPMENT AT HOME. PT IN AGREEMENT WITH PLAN AND REPORTS HAVING FUNDS TO PAY FOR MEDICATION AT PHARMAC[place] GET PRESCRIPTIONS [place] [facility]. PT HAS NOT CHOICE ON PROVIDER FOR MEDICAL EQUIPMENT. CM CALLED [facility], DISCUSSED WITH YULISSA AT [phone] WHO REPORTS THEY CAN PROVIDE OXYGEN AND NEBULIZER THROUGH MEDICARE AND COINSURANCE WITH NO COPAY TO PT UNTIL THE [place] PROVIDES THE EQUIPMENT OR PT MAY DECIDE TO KEEP EQUIPMENT WITH [facility] AND MEDICARE PAYING. PT INFORMED AND IN AGREEMENT WITH PLAN. CM CALLED BRIAN BENITEZ [place] EXTENSION FORESTER, [place] EXT [phone] WHO ADVISED CM TO FAX REQUEST AND DOCUMENTATION TO [facility] AND ADVISED THAT IT MAY TAKE SEVERAL DAYS TO ARRANGE MEDICAL EQUIPMENT THROUGH [facility]. CM CALLED [facility], , SPOKE TO AMAN WHO ASKED FOR CM TO FAX REFERRAL AND SHE COULD NOT TELL CM HOW LONG IT WILL TAKE TO ARRANGE MEDICAL EQUIPMENT. CM FAXED REFERRAL [facility], , ATTENTION PAC [address] DOM[address]. CM FAXED REFERRAL TO [facility] FOR OXYGEN AND NEBULIZER, . CM CALLED [facility], , SPOKE TO LATONIA WHO PROVIDED [employer] [employer] DUONEB INHALATION SOLUTION AND SYMBICORT INHALER: DUONEB $13.39 AND SYBICORT $326.40. PT NOTIFIED AND WILL CALL [employer] TO SEE IF HE CAN GET DISCOUNT CARD FOR FREE INHALER. CM FAXED PRESCRIPTIONS TO [facility] AT [phone]. [facility] TO ARRANGE HOSPITAL DELIVERY OF PORTABLE OXYGEN TO HOSPITAL FOR DISCHARGE THURSDAY, WILL ARRANGE HOME OXYGEN AND NEBULIZER FOR HOME DELIVERY. [facility] ALSO WORKING ON ARRANGING OXYGEN AND NEBUILZER FOR HOME DELIVERY; PT WILL CALL [facility] TO HAVE EQUIPMENT PICKED UP ONCE [facility] DELIVERS. PT WILL TAKE PRESCRIPTIONS TO [facility] ON THURSDAY TO CHANGE TO [facility] PRESCRIPTIONS FOR FILLING AT [facility]. Flight Readiness Technician: Herman Nuñez Appended by Herman Nuñez on 01/15/2018 13:43 CHIEF OF VITAL STATISTICS: CM OBTAINED SIGNED PRESCRIPTIONS FOR DUONEB AND SYMBICORT, FAXED TO [facility] AT [phone]. CM OBTAINED SYMBICORT SAMPLE INHALER FROM DR. REBOLLAR, PLACED ON FRONT OF PT'S CHART TO BE PROVIDED TO PT FOR DISHCHARGE HOME. PATIENT NOTIFIED. CM TO CONTINUE TO FOLLOW AND ASSIST NEEDED. HERMAN NUÑEZ, CASE MANAGEMENT DCPIA - Discharge Planning Initial Assessment Updated by [id number]: Herman Nuñez on 01/15/18 12:46 pm * Is the patient Alert and Oriented? Yes * How many steps to enter\exit or inside your home? * PCP DR. DOMINGUEZ, [facility] * [facility] * Preadmission Environment Home with Family * ADLs Independent * Equipment CPAP * Other Equipment PROVIDER - [facility] * List name and contact numbers for known caregivers / representatives who currently or will assist patient after discharge: BILL PALMA, SIGNIFICANT OTHER, * Verbal permission to speak to the caregivers and representatives has been obtained from the patient. N/A * Community resources currently utilized None * Please name any agencies selected above. NONE * Additional services required to return to the preadmission environment? No * Can the patient safely return to the preadmission environment? Yes * Has this patient been hospitalized within the prior 30 days at any hospital? No Coverage Notice Reviewer: [id number] Ilana Willis Notice Issued Date-Time: 01/13/2018 13:27 Notice Type: Medicare Outpatient Observation Notice Notice Delivered To: Patient Relationship to Patient: Self Terminal Operations Manager Name: Delivery Method: HAND - Hand Delivered Michelle Days: Prior Verbal Notification: Recipient Understood Notice: Yes Recipient Signature: Yes Med Rec Note Co-signed by Attending: Coverage Notice Comment: Reviewer: [id number] - Herman Nuñez Notice Issued Date-Time: 01/15/2018 12:00 Notice Type: IM Discharge Notice Notice Delivered To: Patient Relationship to Patient: Terminal Operations Manager Name: Delivery Method: HAND - Hand Delivered Michelle Days: Prior Verbal Notification: Recipient Understood Notice: Yes Recipient Signature: Yes Med Rec Note Co-signed by Attending: Coverage Notice Comment: Last DP export: 01/15/18 12:47 p Patient Name: Nkechi WILCOX Page 74008 at 0900 All edits/amendments must be made on the electronic document DICTATION DATE: 01/18/18858 FLATWORK FOLDER: CHUCK 01/18/18858 RPT#: [id number] DC DATE:01/16/18 STATUS: DIS IN [facility] [address] [place] [address] END OF REPORT
[~2018-01-12 22:46] MED LIST changes: +COUMADIN5 MG PO; +HYTRIN10 MG PO; +NORVASC10 MG PO; +PRAVACHOL80 MG PO; +PROSCAR5 MG PO
[2018-01-12] MEDS ORDERED: ALBUTEROL SULF8.5 GM INH (22:52)
[2018-01-13 00:46] LABS: BASOPHILS 0.4 % (0-2); EOSINOPHILS 6.8 % (0-7); HEMATOCRIT 42.1 % (42.0-54.0); HEMOGLOBIN 14.1 g/dL (13.5-17.5); IMMATURE GRANULOCYTES 0.1 % (0-5); LYMPHOCYTES 25.1 % (15-50); MCH 30.9 pg (26.0-34.0); MCHC 33.5 g/dL (31.0-37.0); MCV 92.1 fL (80.0-100.0); MEAN PLATELET VOLUME 9.1 fL (7.4-10.4); MONOCYTES 16.8 % (2-11); NEUTROPHILS 50.8 % (40-80); PLATELET COUNT 198 10x3/uL (130-400); RBC 4.57 10x6/uL (4.20-6.10); RDW 14.6 % (11.5-14.5); WBC 6.9 10x3/uL (4.8-10.8)
[2018-01-13 00:59] LABS: ALBUMIN 3.2 g/dL (3.4-5.0); ALKALINE PHOSPHATASE 86 U/L (46-116); ALT (SGPT) 62 U/L (10-68); BILIRUBIN - TOTAL 0.56 mg/dL (0.2-1.3); CALC OSMOLALITY 280 mosm/kg (275-300); CALCIUM 8.4 mg/dL (8.5-10.1); CARBON DIOXIDE 25.8 mmol/L (21.0-32.0); CHLORIDE - SERUM 105 mmol/L (98-107); CREATININE - SERUM 1.1 mg/dL (0.6-1.3); GLUCOSE 118 mg/dL (74-106); POTASSIUM - SERUM 4.1 mmol/L (3.5-5.1); SODIUM 139 mmol/L (136-145); UREA NITROGEN 17 mg/dL (7-18); eGFR NON AFRICAN AMERICAN 70 mL/min (90-120)
[2018-01-13 01:06] LABS: PRO BNP 601 pg/mL (0-125)
[2018-01-13 01:10] LABS: TROPONIN-I < 0.017 ng/mL (0.000-0.060)
[2018-01-13 04:54] VITALS: BP 140/65
[2018-01-13 09:55] VITALS: BP 165/70
[2018-01-13 11:08] LABS: APTT 55.1 SECONDS (22.8-39.4); INR 2.57 (0.85-1.17); PROTIME 26.9 SECONDS (11.6-15.0)
[2018-01-13 13:26] VITALS: BP 155/60; BMI 30.6
[2018-01-13 15:34] VITALS: BP 130/64
[2018-01-13 20:33] VITALS: BP 137/71
[2018-01-14 00:34] VITALS: BP 135/96
[2018-01-14 06:14] VITALS: BP 148/71
[2018-01-14 07:49] VITALS: BP 145/82
[2018-01-14 10:43] VITALS: Ht 182.9 cm; Wt 102.1 kg
[2018-01-14 11:33] VITALS: BP 117/48
[2018-01-14 15:57] VITALS: BP 118/48
[2018-01-14 20:52] VITALS: BP 105/54
[2018-01-15] VITALS (7 sets, daily range): BP systolic 122–136; BP diastolic 52–65
[2018-01-16 02:11] VITALS: BP 152/78
[2018-01-16 06:11] LABS: BASOPHILS 0 % (0-2); EOSINOPHILS 0 % (0-7); HEMATOCRIT 41.4 % (42.0-54.0); HEMOGLOBIN 13.6 g/dL (13.5-17.5); IMMATURE GRANULOCYTES 0.3 % (0-5); MCH 30.7 pg (26.0-34.0); MCHC 32.9 g/dL (31.0-37.0); MCV 93.5 fL (80.0-100.0); MEAN PLATELET VOLUME 9.5 fL (7.4-10.4); MONOCYTES 6.6 % (2-11); NEUTROPHILS 90.1 % (40-80); RBC 4.43 10x6/uL (4.20-6.10); RDW 14.8 % (11.5-14.5); WBC 14.8 10x3/uL (4.8-10.8)
[2018-01-16 06:25] LABS: PLATELET COUNT 241 10x3/uL (130-400)
[2018-01-16 06:32] LABS: ANION GAP 10.5 mmol/L (8-16); CALCIUM 8.2 mg/dL (8.5-10.1); CARBON DIOXIDE 28.6 mmol/L (21.0-32.0); CREATININE - SERUM 1.2 mg/dL (0.6-1.3); POTASSIUM - SERUM 4.1 mmol/L (3.5-5.1)
[2018-01-16 06:40] VITALS: BP 142/63
[2018-01-16 07:37] LABS: INR 5.7 (0.85-1.17); PROTIME 50.4 SECONDS (11.6-15.0)
[2018-01-16 08:53] VITALS: BP 135/56
[2018-01-16] MEDS ORDERED: BROVANA15 MCG/2 M INH (10:16)
[2018-01-16] MEDS ORDERED: ALBUTEROL2.5 MG/3 M INH (10:16)
[2018-01-16] MEDS ORDERED: MUCINEX DM ER1 EAC1 PO (10:17)
[2018-01-16] MEDS ORDERED: IPRAT-ALBUT 0.5-3 ML INH (10:17)
[2018-01-16] MEDS ORDERED: BENZONATATE200 MG PO (10:17)
[2018-01-16] MEDS ORDERED: SINGULAIR10 MG PO (10:17)
[2018-01-16] MEDS ORDERED: PULMICORT0.5 MG/21 UPD (10:17)
[2018-01-16] MEDS ORDERED: PREDNISONE20 MG PO (10:19)
[2018-01-16] MEDS ORDERED: SYMBICORT 16010.2 GM INH (14:48)
[2018-01-16] MEDS ORDERED: FLUTICASONE PRO16 GM NASAL (15:29)
== END 2018-01-16 16:40 | disposition home or self-care (01) | DRG 189 ==
LOC: D.ER 22:46 → OBSVTIME 01-13 01:34 → D.EDHOLD 01-13 01:34 → D.M2 01-13 12:37
PROVIDERS: Family Medicine; Internal Medicine Nephrology
DX: J96.01 Acute respiratory failure with hypoxia (principal); J44.1 Chronic obstructive pulmonary disease with (acute) exacerbation; F17.213 Nicotine dependence, cigarettes, with withdrawal; J84.9 Interstitial pulmonary disease, unspecified; I10 Essential (primary) hypertension; E78.5 Hyperlipidemia, unspecified; I71.4 Abdominal aortic aneurysm, without rupture; K21.9 Gastro-esophageal reflux disease without esophagitis; G47.33 Obstructive sleep apnea (adult) (pediatric); J30.9 Allergic rhinitis, unspecified; Z79.01 Long term (current) use of anticoagulants; N40.0 Benign prostatic hyperplasia without lower urinary tract symptoms; Z86.711 Personal history of pulmonary embolism; Z85.528 Personal history of other malignant neoplasm of kidney

== ENCOUNTER → 2018-02-15 08:11 | Outpatient (CLI) | payer MEDICARE, BC ==
[~2018-02-15 08:11] MED LIST changes: +ALBUTEROL SULF8.5 GM INH; +ALBUTEROL2.5 MG/3 M INH; +BENZONATATE200 MG PO; +BROVANA15 MCG/2 M INH; +FLUTICASONE PRO16 GM NASAL; +IPRAT-ALBUT 0.5-3 ML INH; +MUCINEX DM ER1 EAC1 PO; +PREDNISONE20 MG PO; +PULMICORT0.5 MG/21 UPD; +SINGULAIR10 MG PO; +SYMBICORT 16010.2 GM INH
== END | disposition home or self-care (01) ==
LOC: D.RT 08:00
DX: J44.9 Chronic obstructive pulmonary disease, unspecified (principal)

== ENCOUNTER → 2019-04-05 13:19 | Outpatient (CLI) | payer MEDICARE, BC | END | disposition home or self-care (01) | LOC: D.RT 02-17 11:00 → D.RAD 02-17 11:30 | PROVIDERS: ATTEND Internal Medicine Pulmonary Disease | DX: J44.9 Chronic obstructive pulmonary disease, unspecified (principal); Z87.09 Personal history of other diseases of the respiratory system ==

== ENCOUNTER → 2019-10-25 12:26 | Outpatient (CLI) | payer MEDICARE, BC | END | disposition home or self-care (01) | LOC: D.RAD 12:26 | PROVIDERS: ATTEND Internal Medicine Pulmonary Disease | DX: J44.1 Chronic obstructive pulmonary disease with (acute) exacerbation (principal) ==

== ENCOUNTER → 2019-11-18 14:22 | Outpatient (CLI) | payer MEDICARE, BC ==
[~2019-11-18 14:22] MED LIST changes: +CARDIZEM120 MG PO
== END | disposition home or self-care (01) ==
LOC: D.LAB 14:22
PROVIDERS: ATTEND Internal Medicine Pulmonary Disease
DX: Z11.59 Encounter for screening for other viral diseases (principal)

== ENCOUNTER 2019-11-25 09:30 | Inpatient (IN) | payer MEDICARE, BC ==
[~2019-11-25] VITALS: Ht 182.9 cm; Wt 111.4 kg
[~2019-11-25 09:30] MED LIST changes: -CARDIZEM120 MG PO
[2019-11-25 10:03] LABS: BASOPHILS 0.2 % (0-2); EOSINOPHILS 1.1 % (0-7); HEMATOCRIT 42.4 % (42.0-54.0); HEMOGLOBIN 14.3 g/dL (13.5-17.5); IMMATURE GRANULOCYTES 0.5 % (0-5); LYMPHOCYTES 23.4 % (15-50); MCH 30.9 pg (26.0-34.0); MCHC 33.7 g/dL (31.0-37.0); MCV 91.6 fL (80.0-100.0); MEAN PLATELET VOLUME 9.3 fL (7.4-10.4); MONOCYTES 10.9 % (2-11); NEUTROPHILS 63.9 % (40-80); RBC 4.63 10x6/uL (4.20-6.10); WBC 8.4 10x3/uL (4.8-10.8)
[2019-11-25 10:05] LABS: PLATELET COUNT 179 10x3/uL (130-400)
[2019-11-25 10:11] LABS: CALC OSMOLALITY 279 mosm/kg (275-300); CALCIUM 8.3 mg/dL (8.5-10.1); CARBON DIOXIDE 29.1 mmol/L (21.0-32.0); CHLORIDE - SERUM 104 mmol/L (98-107); CREATININE - SERUM 1.3 mg/dL (0.6-1.3); POTASSIUM - SERUM 3.1 mmol/L (3.5-5.1); SODIUM 139 mmol/L (136-145); UREA NITROGEN 17 mg/dL (7-18); eGFR NON AFRICAN AMERICAN 57 mL/min (90-120)
[2019-11-25 10:13] LABS: GLUCOSE 106 mg/dL (74-106)
[2019-11-25 10:16] LABS: APTT 36.6 SECONDS (22.8-39.4)
[2019-11-25 10:17] LABS: INR 3.83 (0.85-1.17)
[2019-11-25 10:18] LABS: D-DIMER-QUANTITATIVE 0.46 ug/mLFEU (0.20-0.54)
[2019-11-25 10:28] LABS: ALBUMIN 3.4 g/dL (3.4-5.0); ALKALINE PHOSPHATASE 84 U/L (30-120); ALT (SGPT) 27 U/L (10-68); BILIRUBIN - TOTAL 0.65 mg/dL (0.2-1.3); CKMB 1.7 U/L (0.0-3.6); CREATINE KINASE 75 UL (21-232); MAGNESIUM - SERUM 2.1 mg/dL (1.8-2.4); PRO BNP 1235 pg/mL (0-125); PROTEIN - SERUM 6.8 g/dL (6.4-8.2); TROPONIN-I < 0.017 ng/mL (0.000-0.060)
[2019-11-25 12:45] VITALS: BP 127/71
[2019-11-25 13:36] LABS: CKMB 2.4 U/L (0.0-3.6); CREATINE KINASE 75 UL (21-232); TROPONIN-I 0.032 ng/mL (0.000-0.060)
[2019-11-25 15:32] VITALS: BP 133/59; BMI 33.3
[2019-11-25 16:01] VITALS: Ht 182.9 cm; Wt 111.4 kg
[2019-11-25 19:38] LABS: CKMB 1.9 U/L (0.0-3.6); CREATINE KINASE 72 UL (21-232)
[2019-11-25 19:40] LABS: TROPONIN-I < 0.017 ng/mL (0.000-0.060)
[2019-11-25 20:17] VITALS: BP 150/75
[2019-11-25 22:43] VITALS: BP 151/79
[2019-11-26 01:41] LABS: BASOPHILS 0.6 % (0-2); EOSINOPHILS 3.4 % (0-7); HEMATOCRIT 42.6 % (42.0-54.0); IMMATURE GRANULOCYTES 0.5 % (0-5); LYMPHOCYTES 24.6 % (15-50); MCH 30.6 pg (26.0-34.0); MCHC 32.9 g/dL (31.0-37.0); MCV 93.2 fL (80.0-100.0); MONOCYTES 12.2 % (2-11); NEUTROPHILS 58.7 % (40-80); PLATELET COUNT 169 10x3/uL (130-400); RBC 4.57 10x6/uL (4.20-6.10); RDW 14.1 % (11.5-14.5); WBC 8.1 10x3/uL (4.8-10.8)
[2019-11-26 01:51] LABS: INR 4.39 (0.85-1.17)
[2019-11-26 02:05] LABS: ALBUMIN 3.1 g/dL (3.4-5.0); ALKALINE PHOSPHATASE 84 U/L (30-120); BILIRUBIN - TOTAL 0.42 mg/dL (0.2-1.3); CALCIUM 8.1 mg/dL (8.5-10.1); CARBON DIOXIDE 33.3 mmol/L (21.0-32.0); CHLORIDE - SERUM 104 mmol/L (98-107); CKMB 1.7 U/L (0.0-3.6); CREATINE KINASE 65 UL (21-232); CREATININE - SERUM 1.5 mg/dL (0.6-1.3); GLUCOSE 125 mg/dL (74-106); POTASSIUM - SERUM 3.3 mmol/L (3.5-5.1); PROTEIN - SERUM 6.3 g/dL (6.4-8.2); SODIUM 140 mmol/L (136-145); TROPONIN-I < 0.017 ng/mL (0.000-0.060); eGFR NON AFRICAN AMERICAN 49 mL/min (90-120)
[2019-11-26 02:08] LABS: ALT (SGPT) 20 U/L (10-68); CALC OSMOLALITY 283 mosm/kg (275-300); UREA NITROGEN 23 mg/dL (7-18)
[2019-11-26 08:31] VITALS: BP 165/80
[2019-11-26 11:45] VITALS: BP 170/80
--- NOTE | 2019-11-26 12:54 | NUR ---
NOTIFIED BY [employer], THAT PT WENT FROM [facility] TO [facility] 140S. NOTIFIED MANUEL ZAMBRANO APRN AND PAGED DR. LANDA.
--- NOTE | 2019-11-26 12:58 | NUR ---
RECEIVED CALL BACK FROM DR. LANDA, INFORMED HIM THAT PT WENT FROM [facility] TO [facility] IN THE 140'S. NEW ORDER TO GIVE 10MG OF IV CARDIZEM IV AND IF HE DOES NOT CONVERT TO SR 15-20MIN AFTER BOLUS OF CARDIZEM GIVEN START PT ON CARDIZEM DRIP AT 10MG/HR.
--- NOTE | 2019-11-26 13:08 | NUR ---
10MG OF CARDIZEM GIVEN AT THIS TIME.
--- NOTE | 2019-11-26 14:14 | NUR ---
PLACED PT ON CARDIZEM DRIP. PT'S VERY UPSET BECAUSE PT WAS SUPPOSE TO BE DISCHARGE AND NOW HIS DISCHARGE IS CANCELLED. TRIED TO EXPLAINED TO PT AND PT'S SPOUSE, WHY THE DICHARGE WAS CANCELLED BUT PT'S WANTS TO TALK TO A DOCTOR. NOTIFIED MANUEL ZAMBRANO APRN.
--- NOTE | 2019-11-26 15:57 | NUR ---
CALLED ROSITA AND INFORMED HIM THAT I NEED ANOTHER FLONASE FOR PT.
--- NOTE | 2019-11-26 15:58 | NUR ---
CALLED DR. LANDA AND INFORMED HIM THAT PT'S IS VERY UPSET BECAUSE NO ONE FROM CARDIOLOGY SAW PT TODAY AND SHE IS DEMANDING TO SEE A CARDIOLOGY TODAY. PER DR. LANDA HE WILL BE HERE LATER THIS EVENING TO SEE PT.
[2019-11-26 16:26] VITALS: BP 116/57
--- NOTE | 2019-11-26 18:20 | NUR ---
NOTIFIED BY ICE SELLER THAT PT CONVERTED TO SR.
--- NOTE | 2019-11-26 20:08 | NUR ---
RECEIVED REPORT, WILL ASSUME CARE OF PT, 02-2L, ESPERANZA @ 10, BED IS LOW, SRX2, CALL LIGHT IN REACH, WILL CONTINUE PLAN OF CARE
[2019-11-26 20:51] VITALS: BP 116/53
[2019-11-27 00:09] VITALS: BP 125/59
--- NOTE | 2019-11-27 00:39 | NUR ---
I have reviewed this patient and I concur with the Shift Assessment completed by the Licensed Practical Nurse today this shift.
[2019-11-27 05:34] VITALS: BP 137/65
[2019-11-27 05:34] LABS: BASOPHILS 0.4 % (0-2); EOSINOPHILS 4.2 % (0-7); HEMATOCRIT 42.5 % (42.0-54.0); HEMOGLOBIN 14.1 g/dL (13.5-17.5); IMMATURE GRANULOCYTES 0.4 % (0-5); LYMPHOCYTES 19.2 % (15-50); MCH 30.7 pg (26.0-34.0); MCHC 33.2 g/dL (31.0-37.0); MCV 92.6 fL (80.0-100.0); MEAN PLATELET VOLUME 9.5 fL (7.4-10.4); MONOCYTES 13.7 % (2-11); NEUTROPHILS 62.1 % (40-80); PLATELET COUNT 180 10x3/uL (130-400); RBC 4.59 10x6/uL (4.20-6.10); RDW 14.3 % (11.5-14.5); WBC 7.3 10x3/uL (4.8-10.8)
[2019-11-27 05:49] LABS: INR 2.82 (0.85-1.17); PROTIME 29.2 SECONDS (11.6-15.0)
[2019-11-27 06:05] LABS: ALBUMIN 2.9 g/dL (3.4-5.0); ANION GAP 10.1 mmol/L (8-16); BILIRUBIN - TOTAL 0.68 mg/dL (0.2-1.3); CALCIUM 8.1 mg/dL (8.5-10.1); CARBON DIOXIDE 28.2 mmol/L (21.0-32.0); CREATININE - SERUM 1.4 mg/dL (0.6-1.3); POTASSIUM - SERUM 3.3 mmol/L (3.5-5.1); PROTEIN - SERUM 5.9 g/dL (6.4-8.2)
[2019-11-27 08:23] VITALS: BP 129/84
--- NOTE | 2019-11-27 09:13 | NUR ---
AM MEDS GIVEN AT THIS TIME. CARDIZEM STOPPED AND PO CARDIZEM GIVEN AT THIS TIME. PT RESTING COMFORTABLY IN BED, DENIES ANY NEEDS AT THIS TIME. CALL LIGHT IN REACH,NAD NOTED, WILL CONTINUE TO MONITOR.
[2019-11-27 12:19] VITALS: BP 128/68
--- NOTE | 2019-11-27 13:30 | NUR ---
CALLED CISCO VANEGAS APRN AND ASKED HER IF THEY WERE PLANNING ON DISCHARGING PT SINCE HE WAS SUPPOSE TO DISCHARGE YESTERDAY BUT WENT INTO [facility]. NOW PT HAS BEEN SR SINCE 1900 LAST NIGHT. PT REALLY WANTS TO GO HOME SINCE NOTHING IS BEING DONE FOR HIM NOW.
[2019-11-27 16:00] VITALS: BP 107/65
[2019-11-27] MEDS ORDERED: CARDIZEM120 MG PO (18:02)
--- NOTE | 2019-11-27 18:22 | NUR ---
PROVIDED VERBAL AND WRITTEN DISCHARGE TEACHING TO PT AND PT'S , BOTH VERBALIZED UNDERSTANDING REGARDING TEACHING. REMOVED RT HAND IV WITH CATHETER TIP INTACT. HEART MONITOR REMOVED AND TAKEN TO SUPERVISOR ACCOUNTS RECEIVABLE. WHEELED PT TO ER ENTRANCE, WITH ALL BELONGIGNS,NAD NOTED.
== END 2019-11-27 18:23 | disposition home or self-care (01) | DRG 309 ==
LOC: D.ER 09:30 → D.M2 11:06 → OBSVTIME 11-26 16:30 → D.M2 11-26 16:35
PROVIDERS: Family Medicine; ADMIT Emergency Medicine; ATTEND Emergency Medicine
DX: I48.0 Paroxysmal atrial fibrillation (principal); N17.9 Acute kidney failure, unspecified; I10 Essential (primary) hypertension; J44.9 Chronic obstructive pulmonary disease, unspecified; I71.4 Abdominal aortic aneurysm, without rupture; E78.5 Hyperlipidemia, unspecified; K21.9 Gastro-esophageal reflux disease without esophagitis; N40.0 Benign prostatic hyperplasia without lower urinary tract symptoms; H35.30 Unspecified macular degeneration; Z86.711 Personal history of pulmonary embolism; Z87.891 Personal history of nicotine dependence

== ENCOUNTER → 2020-06-21 14:30 | Outpatient (CLI) | payer MEDICARE, BC ==
[2019-11-25 16:01] VITALS: BMI 33.3
[~2020-06-21 14:30] MED LIST changes: +CARDIZEM120 MG PO
== END | disposition home or self-care (01) ==
LOC: D.CT 14:30
PROVIDERS: ATTEND Internal Medicine Pulmonary Disease
DX: R51.9 Headache, unspecified (principal)

== ENCOUNTER → 2020-06-25 10:12 | Outpatient (CLI) | payer MEDICARE, BC ==
[2019-11-25 16:01] VITALS: BMI 33.3
== END | disposition home or self-care (01) ==
LOC: D.ECHO 10:12
PROVIDERS: ATTEND Internal Medicine Pulmonary Disease
DX: R60.9 Edema, unspecified (principal)